=== PATIENT | female | born 1980 | race Caucasian/White ===

== ENCOUNTER 2016-10-02 17:47 | Emergency (ER) | payer OTHER ==
[2016-10-02 18:23] LABS: % BASOPHILS 0.9 % (0.0-2.0); % EOSINOPHILS 0.8 % (0.0-5.0); % MONOCYTES 5.2 % (2.0-10.0); % NEUTROPHILS 69.1 % (40.0-80.0); HEMATOCRIT 48.1 % (35.0-45.0); HEMOGLOBIN 16.3 gm/dL (11.7-15.5); MEAN CELL VOLUME 89.8 fl (81-100); MEAN CORPUSCULAR HEMOGLOBIN 30.4 pg (27.0-31.0); MEAN CORPUSCULAR HGB CONC 33.8 pg (28.0-36.0); MEAN PLATELET VOLUME 8.3 fl; NEUTROPHILE ABSOLUTE 5.6 Th/cmm (1.8-8.0); PLATELET COUNT 239 Th/cmm (150-400); RED BLOOD COUNT 5.36 Mil/cmm (3.80-5.10); RED CELL DISTRIBUTION WIDTH 11.9 % (11.5-20.0); WHITE BLOOD COUNT 8.1 Th/cmm (4.8-10.8)
--- NOTE | 2016-10-02 18:29 | ED Physician Chart ---
Chief Complaint/HPI - Patient Information Date Seen:: 10/02/16 Time Seen:: 18:14 Chief Complaint:: RIGHT FLANK PAIN History of Present Illness:: THIS IS A 35 YO FEMALE WITH RIGHT FLANK PAIN THAT STARTED EARLIER TODAY. SHE HAS A HISTORY OF RENAL STONES BUT DENIES BLOOD IN HER URINE AND PAIN URINATING. SHE DENIES VOMITING AND DIARRHEA OR FEVER. Allergies:: Allergies Allergy/AdvReac Type Severity Reaction Status Date / Time ceftriaxone [From Rocephin] Allergy Verified 10/02/16 18:03 levofloxacin [From Levaquin] Allergy Verified 10/02/16 18:03 Penicillins Allergy Verified 10/02/16 18:03 Vitals:: Vital Signs - 8 hr 10/02/16 18:03 Temp 98.0 F HR 80 RR 18 BP 122/75 O2 Sat % 100 Historian:: Patient Review of Systems - Review of Systems General/Constitutional: No fever, No chills, No weight loss, No weakness, No diaphoresis, No edema, No loss of appetite Skin: No skin lesions, No rash, No bruising Head: No headache, No light-headedness Eyes: No loss of vision, No pain, No diplopia ENT: No earache, No nasal drainage, No sore throat, No tinnitus Neck: No neck pain, No swelling, No thyromegaly, No stiffness, No mass noted Cardio Vascular: No chest pain, No palpitations, No PND, No orthopnea, No edema Pulmonary: No SOB, No cough, No sputum, No wheezing GI: No nausea, No vomiting, No diarrhea, No pain, No melena, No hematochezia, No constipation, No hematemesis G/U: No dysuria, No frequency, No hematuria, Other (RIGHT FLANK TENDERNESS AND PAIN) Musculoskeletal: No bone or joint pain, No back pain, No muscle pain Endocrine: No polyuria, No polydipsia Psychiatric: No prior psych history, No depression, No anxiety, No suicidal ideation Hematopoietic: No bruising, No lymphadenopathy Allergic/Immuno: No urticaria, No angioedema Neurological: No syncope, No focal symptoms, No weakness, No paresthesia, No headache, No seizure, No dizziness, No confusion, No vertigo Past Medical History - Past Medical History Obtainable: Yes Past Medical History: HTN Family History: None Social History: Non Smoker, No Alcohol, No Drug Use Surgical History: Hysterectomy Psychiatricy History: None Medication: Reviewed Family Medical History - Family Member mother History Unknown: Yes Hx Family Hypertension: Yes Hx Family Diabetes: Yes Other Medical History: hypothyroidism father Other Medical History: hypothyroidism Physical Exam - Physical Examination General/Constitutional: Awake, Well-developed, well-nourished, Alert, No distress, GCS 15, Non-toxic appearing, Ambulatory Head: Atraumatic Eyes: Lids, conjuctiva normal, PERRL, EOMI Skin: Nl inspection, No rash, No skin lesions, No ecchymosis, Well hydrated, No lymphadenopathy ENMT: External ears, nose nl, Nasal exam nl, Lips, teeth, gums nl Neck: Nontender, Full ROM w/o pain, No JVD, No nuchal rigidity, No bruit, No mass, No stridor Respiratory: Nl effort/Exclusion, Clear to Auscultation, No Wheeze/Rhonchi/Rales Cardio Vascular: RRR, No murmur, gallop, rubs, NL S1 S2 GI: No organomegaly, No hernia, Normal BS's, Nondistended, No mass/bruits, No McBurney tenderness Other GI comments:: RIGHT FLANK TENDERNESS WITH REBOUND : No CVA tenderness Extremities: No tenderness or effusion, Full ROM, normal strength in all extremities, No edema, Normal digits & nails Neuro/Psych: Alert/oriented, DTR's symmetric, Normal sensory exam, Normal motor strength, Judgement/insight normal, Mood normal, Normal gait, No focal deficits Misc: normal gait, Normal back, No paraspinal tenderness Labs/Radiology/EKG Results - Lab Results Results: Abnormal Lab Results 10/02/16 10/02/16 10/02/16 18:14 18:14 18:14 WBC 8.1 RBC 5.36 H Hgb 16.3 H Hct 48.1 H MCV 89.8 MCH 30.4 MCHC Differential 33.8 RDW 11.9 Plt Count 239 MPV 8.3 Neutrophils % 69.1 Lymphocytes % 24.0 Monocytes % 5.2 Eosinophils % 0.8 Basophils % 0.9 PT 10.3 INR 0.99 Sodium 134 L Potassium 3.5 Chloride 105 Carbon Dioxide 23.9 Anion Gap 8.6 BUN 12 Creatinine 1.0 Est GFR ( Amer) > 60.0 Est GFR (Non-Af Amer) > 60.0 BUN/Creatinine Ratio 12.0 Glucose 104 Calcium 10.3 Total Bilirubin 0.6 AST 23 ALT 33 Alkaline Phosphatase 52 Total Protein 8.3 Albumin 5.2 Globulin 3.1 Albumin/Globulin Ratio 1.7 TSH Urine Source Urine Color Urine Clarity Urine pH Ur Specific [place] Urine Protein Urine Glucose (UA) Urine Ketones Urine Blood Urine Nitrate Urine Bilirubin Urine Urobilinogen Ur Leukocyte Esterase Urine RBC Urine WBC Ur Epithelial Cells Urine Bacteria 10/02/16 10/02/16 18:14 18:15 WBC RBC Hgb Hct MCV MCH MCHC Differential RDW Plt Count MPV Neutrophils % Lymphocytes % Monocytes % Eosinophils % Basophils % PT INR Sodium Potassium Chloride Carbon Dioxide Anion Gap BUN Creatinine Est GFR ( Amer) Est GFR (Non-Af Amer) BUN/Creatinine Ratio Glucose Calcium Total Bilirubin AST ALT Alkaline Phosphatase Total Protein Albumin Globulin Albumin/Globulin Ratio TSH 0.73 Urine Source CLEAN C Urine Color YELLOW Urine Clarity CLEAR Urine pH 5.5 Ur Specific [place] 1.020 Urine Protein NEGATIVE Urine Glucose (UA) NEGATIVE Urine Ketones NEGATIVE Urine Blood MODERATE H Urine Nitrate NEGATIVE Urine Bilirubin NEGATIVE Urine Urobilinogen 0.2 Ur Leukocyte Esterase SMALL H Urine RBC 5-10 H Urine WBC 2-5 Ur Epithelial Cells FEW Urine Bacteria NONE SEEN - Radiology Results Results: CT SCAN = NEG FOR RENAL STONE ED Septic Shock - . Is Septic Shock (SBP<90, OR Lactate>4 mmol\L) present?: No - <6hrs of presentation: Vital Signs: Vital Signs - 8 hr 10/02/16 18:03 Temp 98.0 F HR 80 RR 18 BP 122/75 O2 Sat % 100 Reassessment (Disposition) - Reassessment Reassessment Condition:: Improved - Diagnosis Diagnosis:: URINARY TRACK INFECTION RENAL STONE HEMATURIA - Aftercare/Follow up Instructions Aftercare/Follow-Up Instructions:: Counseled pt regarding lab results/diagnosis & need follow up, Refer to Discharge Instructions, Counseled pt & family regarding lab results/diagnosis & need follow up - Patient Disposition Discharge/Transfer:: Home Condition at Disposition:: Improved ED Discharge Plan - Patient Disposition Admit/Discharge/Transfer: PT DISCHARGED HOME Condition at Disposition: Improved
[2016-10-02 18:37] LABS: INR 0.99 (0.5-1.4); PROTHROMBIN TIME (TEST) 10.3 SECONDS (9.5-11.5)
[2016-10-02 18:39] LABS: ALB/GLOB RATIO 1.7 (1.0-1.8); ALKALINE PHOSPHATASE 52 U/L (34-104); ANION GAP 8.6 (7.0-16.0); BILIRUBIN,TOTAL 0.6 mg/dL (0.3-1.0); BUN - UREA NITROGEN 12 mg/dL (7-25); CALCIUM SERUM 10.3 mg/dL (8.6-10.3); CARBON DIOXIDE 23.9 mEq/L (21.0-31.0); CHLORIDE 105 mEq/L (98-107); GLUCOSE 104 mg/dL (70-105); POTASSIUM SERUM 3.5 mEq/L (3.5-5.1); SGOT 23 U/L (13-39); SGPT/ALT 33 U/L (7-52); SODIUM SERUM 134 mEq/L (136-145)
[2016-10-02 20:02] LABS: URINE BILIRUBIN NEGATIVE (NEGATIVE); URINE COLOR YELLOW; URINE GLUCOSE (UA) NEGATIVE (NEGATIVE); URINE KETONE NEGATIVE (NEGATIVE)
[2016-10-02 20:03] LABS: URINE BLOOD MODERATE (NEGATIVE); URINE PH 5.5; URINE PROTEIN NEGATIVE (NEGATIVE); URINE UROBILINOGEN 0.2 E.U./dL (0.2 - 1.0)
[2016-10-02 20:04] LABS: URINE BACTERIA NONE SEEN /hpf (NONE SEEN); URINE EPITHELIAL CELLS FEW /lpf (FEW)
[2016-10-02] MEDS ORDERED: Azithromycin 500 MG in Sodium Chloride 0.9% 250 ML IV ONE (20:10)
[2016-10-02] MEDS ORDERED: HYDROmorphone 1 mg/mL 1mL Syr IVP STA ×2 (20:16)
[2016-10-02] MEDS ORDERED: HYDROmorphone 1 mg/mL 1mL Syr ONE (20:25)
--- NOTE | 2016-10-03 10:43 | Diagnostic Imaging Report ---
CT scan of the abdomen and pelvis without intravenous contrast History: Pain Total DLP equals 446 CTDI equals 9.9 Axial sections were obtained from the xiphoid process down to the pubic symphysis. The liver demonstrates a normal size and contour. No focal lesions are seen. The spleen appears normal. No abnormalities are seen in the region of the pancreas. The kidneys appear normal bilaterally. No calculi. No hydronephrosis. The exam of the pelvis demonstrates preservation of normal fat planes. There is right adnexal fullness with hypodensity. Findings may be associated with ovarian cystic changes. If necessary, a pelvic ultrasound exam would provide additional assessment. IMPRESSION: 1. Right adnexal fullness with hypodensity. Changes may be associated with ovarian cystic changes. If necessary, a pelvic ultrasound exam would provide for further assessment.
== END 2016-10-02 21:21 | disposition home or self-care (01) ==
LOC: ER 17:47
DX: N39.0 Urinary tract infection, site not specified (principal); N20.0 Calculus of kidney; R31.9 Hematuria, unspecified; I10 Essential (primary) hypertension; Z90.710 Acquired absence of both cervix and uterus; Z88.0 Allergy status to penicillin; Z88.1 Allergy status to other antibiotic agents
CPT/HCPCS: 99285; 96365; 96375; 74176; 36415; 84443; 85025; 85610; 81001; 80053; J1885; J2405; J0456; J1170

== ENCOUNTER 2018-01-10 21:25 | Emergency (ER) | payer OTHER ==
[2018-01-10] MEDS ORDERED: Morphine Sulfate 2 mg/mL 1mL Syr IV STA (21:58)
[2018-01-10] MEDS ORDERED: Lactated Ringer 1,000 ML IV ONE (21:59)
[2018-01-10] MEDS ORDERED: Morphine Sulfate 2 mg/mL 1mL Syr ONE (22:25)
[2018-01-10 22:46] LABS: % BASOPHILS 0.8 % (0.0-2.0); % EOSINOPHILS 0.6 % (0.0-5.0); % LYMPHOCYTES 29.4 % (20.0-50.0); % MONOCYTES 5.7 % (2.0-10.0); % NEUTROPHILS 63.5 % (40.0-80.0); BASOPHILE ABSOLUTE 0.1 Th/cumm (0-0.2); EOSINOPHILE ABSOLUTE 0.1 Th/cmm (0.1-0.4); HEMATOCRIT 43.1 % (41.0-60); HEMOGLOBIN 14.7 gm/dL (12-16); LYMPHOCYTE ABSOLUTE 2.7 Th/cmm (1.5-3.0); MEAN CELL VOLUME 91.4 fl (81-100); MEAN CORPUSCULAR HEMOGLOBIN 31.3 pg (27.0-31.0); MEAN CORPUSCULAR HGB CONC 34.2 pg (28.0-36.0); MEAN PLATELET VOLUME 8.5 fl; MONOCYTE ABSOLUTE 0.5 Th/cmm (0.3-1.0); NEUTROPHILE ABSOLUTE 5.9 Th/cmm (1.8-8.0); PLATELET COUNT 239 Th/cmm (150-400); RED BLOOD COUNT 4.71 Mil/cmm (3.80-5.10); WHITE BLOOD COUNT 9.3 Th/cmm (4.8-10.8)
[2018-01-10 22:54] LABS: URINE SOURCE CLEAN C
[2018-01-10 22:56] LABS: URINE BILIRUBIN NEGATIVE (NEGATIVE); URINE BLOOD NEGATIVE (NEGATIVE); URINE GLUCOSE (UA) NEGATIVE (NEGATIVE); URINE KETONE NEGATIVE (NEGATIVE); URINE LEUKOCYTE ESTERASE NEGATIVE (NEGATIVE); URINE NITRATE NEGATIVE (NEGATIVE); URINE PROTEIN NEGATIVE (NEGATIVE); URINE UROBILINOGEN 0.2 E.U./dL (0.2 - 1.0)
[2018-01-10 22:58] LABS: ALB/GLOB RATIO 1.7 (1.0-1.8); ALBUMIN 4.4 gm/dL (3.7-5.3); ALKALINE PHOSPHATASE 44 U/L (34-104); AMYLASE SERUM 29 U/L (29-103); ANION GAP 9.4 (7.0-16.0); BILIRUBIN,TOTAL 0.4 mg/dL (0.3-1.0); BUN - UREA NITROGEN 11 mg/dL (7-25); CALCIUM SERUM 9.7 mg/dL (8.6-10.3); CARBON DIOXIDE 23.4 mEq/L (21.0-31.0); CHLORIDE 107 mEq/L (98-107); CREATININE - SERUM 0.8 mg/dL (0.6-1.2); GFR AFRICAN-AMERICAN > 60.0 ml/min (>90); GFR NON AFRICAN-AMERICAN > 60.0 ml/min; GLUCOSE 83 mg/dL (70-105); MAGNESIUM 2.3 mg/dL (1.9-2.7); PHOSPHOROUS 2.5 mg/dL (2.5-5.0); POTASSIUM SERUM 3.8 mEq/L (3.5-5.1); SGOT 21 U/L (13-39); SGPT/ALT 32 U/L (7-52); SODIUM SERUM 136 mEq/L (136-145)
[2018-01-10 23:02] LABS: URINE CLARITY CLEAR (CLEAR); URINE COLOR YELLOW
--- NOTE | 2018-01-10 23:52 | ED Physician Chart ---
ED Chief Complaint/HPI - Patient Information Date Seen:: 01/10/18 Time Seen:: 21:48 Chief Complaint:: RLQ pain History of Present Illness:: RLQ pain, h/o ovarian cyst. recent diagnosis of cervical cancer. No n, v, d, c. Still has her appendix. Allergies:: Allergies Allergy/AdvReac Type Severity Reaction Status Date / Time ceftriaxone [From Rocephin] Allergy Verified 10/02/16 18:03 levofloxacin [From Levaquin] Allergy Verified 10/02/16 18:03 Penicillins Allergy Verified 10/02/16 18:03 Vitals:: Vital Signs - 8 hr 01/10/18 21:48 Temp 98.3 F HR 73 RR 18 BP 135/59 O2 Sat % 99 Historian:: Patient, Friend Review:: Nurse's Note Reviewed ED Review of Systems - Review of Systems General/Constitutional: No fever, No chills, No weight loss, No weakness, No diaphoresis, No edema, No loss of appetite Skin: No skin lesions, No rash, No bruising Head: No headache, No light-headedness Eyes: No loss of vision, No pain, No diplopia ENT: No earache, No nasal drainage, No sore throat, No tinnitus Neck: No neck pain, No swelling, No thyromegaly, No stiffness, No mass noted Cardio Vascular: No chest pain, No palpitations, No PND, No orthopnea, No edema Pulmonary: No SOB, No cough, No sputum, No wheezing GI: No nausea, No vomiting, No diarrhea, Pain, No melena, No hematochezia, No constipation, No hematemesis G/U: No dysuria, No frequency, No hematuria Musculoskeletal: No bone or joint pain, No back pain, No muscle pain Endocrine: No polyuria, No polydipsia Psychiatric: No prior psych history, No depression, No anxiety, No suicidal ideation Hematopoietic: No bruising, No lymphadenopathy Allergic/Immuno: No urticaria, No angioedema Neurological: No syncope, No focal symptoms, No weakness, No paresthesia, No headache, No seizure, No dizziness, No confusion, No vertigo ED Past Medical History - Past Medical History Obtainable: Yes Past Medical History: Other (right ovarian cyst measured at 2.6 cm previously a couple of weeks ago. recent diagnosis of cervical cancer (unknown stage).) Family Medical History - Family Member mother History Unknown: Yes Hx Family Hypertension: Yes Hx Family Diabetes: Yes Other Medical History: HYPOTHYROIDISM ED Physical Exam - Physical Examination General/Constitutional: Awake Other Gen/Cons comments:: slight distress with respect to the right lower quadrant pain. Head: Atraumatic Eyes: Lids, conjuctiva normal, PERRL, EOMI Skin: Nl inspection, No rash, No skin lesions, No ecchymosis, Well hydrated, No lymphadenopathy ENMT: External ears, nose nl, Nasal exam nl, Lips, teeth, gums nl Neck: Nontender, Full ROM w/o pain, No JVD, No nuchal rigidity, No bruit, No mass, No stridor Respiratory: Nl effort/Exclusion, Clear to Auscultation, No Wheeze/Rhonchi/Rales Cardio Vascular: RRR, No murmur, gallop, rubs, NL S1 S2 Other GI comments:: no evidence of peritoneal signs. some pain present in the right lower quadrant to palpation (not impressive on exam). negative rovsing's signs. negative psoas sign. : No CVA tenderness Extremities: No tenderness or effusion, Full ROM, normal strength in all extremities, No edema, Normal digits & nails Neuro/Psych: Alert/oriented, DTR's symmetric, Normal sensory exam, Normal motor strength, Judgement/insight normal, Mood normal, Normal gait, No focal deficits Misc: Normal back, No paraspinal tenderness ED Labs/Radiology/EKG Results - Lab Results Results: Laboratory Tests 01/10/18 01/10/18 01/10/18 22:00 22:34 22:34 WBC 9.3 RBC 4.71 Hgb 14.7 Hct 43.1 MCV 91.4 MCH 31.3 H MCHC Differential 34.2 RDW 12.0 Plt Count 239 MPV 8.5 Neutrophils % 63.5 Lymphocytes % 29.4 Monocytes % 5.7 Eosinophils % 0.6 Basophils % 0.8 Sodium 136 Potassium 3.8 Chloride 107 Carbon Dioxide 23.4 Anion Gap 9.4 BUN 11 Creatinine 0.8 Est GFR ( Amer) > 60.0 Est GFR (Non-Af Amer) > 60.0 BUN/Creatinine Ratio 13.8 Glucose 83 Calcium 9.7 Phosphorus 2.5 Magnesium 2.3 Total Bilirubin 0.4 AST 21 ALT 32 Alkaline Phosphatase 44 Total Protein 7.0 Albumin 4.4 Globulin 2.6 Albumin/Globulin Ratio 1.7 Amylase 29 Urine Source CLEAN C Urine Color YELLOW Urine Clarity CLEAR Urine pH 7.0 Ur Specific [place] <= 1.005 Urine Protein NEGATIVE Urine Glucose (UA) NEGATIVE Urine Ketones NEGATIVE Urine Blood NEGATIVE Urine Nitrate NEGATIVE Urine Bilirubin NEGATIVE Urine Urobilinogen 0.2 Ur Leukocyte Esterase NEGATIVE ED Assessment - Assessment General Assessment: patient started itching after receiving the morphine 2 mg IV. therefore, I gave her benadryl 25 mg IV. she felt better after the benadryl. patient had little to no pain after receiving iv toradol. ED Septic Shock - . Is Septic Shock (SBP<90, OR Lactate>4 mmol\L) present?: No - <6hrs of presentation: Vital Signs: Vital Signs - 8 hr 01/10/18 21:48 Temp 98.3 F HR 73 RR 18 BP 135/59 O2 Sat % 99 ED Reassessment (Disposition) - Reassessment Reassessment:: Right lower quadrant abdominal pain Right ovarian cyst. 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 You were found to have a right ovarian cyst which is decreasing in size. Medication Prescribed:: patient states that she wants to pain medicine on discharge at all. She also wants no time off of work. Her boyfriend, at the nurse's desk--outside of the hearing of the patient said that Tramadol works well for the patient. I told the boyfriend that I was not going to prescribe any pain medication for the patient since she did not want any. - Patient Disposition Discharge/Transfer:: Home Condition at Disposition:: Stable, Improved
--- NOTE | 2018-01-11 09:16 | Diagnostic Imaging Report ---
Ultrasound pelvis HISTORY: Right lower quadrant pain. History of ovarian cyst and cervical cancer. History of hysterectomy and left oophorectomy. History of endometriosis. COMPARISON: CT abdomen and pelvis on 10/02/2016 Technique: Longitudinal and transverse sonographic sector images of the pelvis were obtained transabdominally and transvaginally. Findings: The uterus was not visualized. The right ovary measures 3.6 x 2.3 x 2.9 cm demonstrating a dominant cyst measuring 2.2 cm. Vascular flow to the right ovary is noted. The left ovary is not visualized. No free fluid identified. Sonolucent lesions of the cervix are noted largest measuring 8 mm. IMPRESSION: Right ovarian follicular cyst measuring 2.2 cm. Clinical correlation and short-term follow-up ultrasound may be obtained for further assessment. The uterus was not visualized. Please correlate clinically for possible recent hysterectomy. Note, patient did have uterus on previous CT examination on 10/02/2016. The left ovary is not visualized, compatible with surgical history. Cystic lesions of the cervix which may resent nabothian cysts, however, given patient's cervical cancer, clinical correlation of this finding is recommended.
== END 2018-01-11 00:20 | disposition home or self-care (01) ==
LOC: ER 21:25
DX: N83.201 Unspecified ovarian cyst, right side (principal); C53.9 Malignant neoplasm of cervix uteri, unspecified; Z88.0 Allergy status to penicillin; Z88.1 Allergy status to other antibiotic agents
CPT/HCPCS: 99285; 96374; 96375; 76856; 76830; 36415; 85025; 81003; 82150; 83735; 84100; 80053; J2270; J1885; J2405; J1200